=== PATIENT | male | born 1955 | race Caucasian/White ===

== ENCOUNTER 2023-04-21 13:41 | Day surgery (SDC) | payer MEDICARE, OTHER, SELFPAY ==
[2023-04-21 13:43] VITALS: BMI 28.6
[2023-04-21 13:44] VITALS: BMI 28.6
[2023-04-21 13:51] VITALS: BP 130/82
[2023-04-21 14:46] VITALS: BP 99/72
[2023-04-21 15:00] VITALS: BP 126/76
[2023-04-21 15:01] VITALS: BP 126/76
[2023-04-21 15:15] VITALS: BP 127/90
== END 2023-04-21 15:30 | disposition home or self-care (01) ==
LOC: SDS 13:41
PROVIDERS: ATTENDING PHYSICIAN Surgery
DX: Z12.11 Encounter for screening for malignant neoplasm of colon (principal); K62.89 Other specified diseases of anus and rectum; Z85.048 Personal history of other malignant neoplasm of rectum, rectosigmoid junction, and anus; Z98.890 Other specified postprocedural states
CPT/HCPCS: 45331; 88305

== ENCOUNTER → 2024-02-01 06:15 | Day surgery (SDC) | payer MEDICARE, OTHER, SELFPAY | LOC: GI 06:15 | PROVIDERS: ATTENDING PHYSICIAN Surgery | DX: Z08 Encounter for follow-up examination after completed treatment for malignant neoplasm (principal); Z12.11 Encounter for screening for malignant neoplasm of colon; Z85.048 Personal history of other malignant neoplasm of rectum, rectosigmoid junction, and anus | CPT/HCPCS: 45330 ==

== ENCOUNTER → 2024-02-21 12:48 | Outpatient (REF) | payer MEDICARE, OTHER, SELFPAY | LOC: MRI 3T 12:48 | PROVIDERS: ATTENDING PHYSICIAN Surgery; FAMILY PHYSICIAN Nurse Practitioner | DX: Z85.048 Personal history of other malignant neoplasm of rectum, rectosigmoid junction, and anus (principal) | CPT/HCPCS: 72197; A9575 ==